=== PATIENT | female | born 1960 | race Caucasian/White ===

== ENCOUNTER 2017-09-26 10:03 | Observation (INO) | payer OTHER ==
[~2017-09-26] VITALS: Ht 152.4 cm; Wt 87.5 kg
[~2017-09-26 10:03] MED LIST: CITA20 PO; FISH OIL + D31 EACH PO; HYDACE5 PO; IBUP600 PO; LEVFLO500 PO; LEVSOD100 PO; PROM25 PO
[2017-09-26] MEDS ORDERED: LISI5 PO (10:32)
[2017-09-26 10:56] LABS: BASOPHILS ABSOLUTE AUTO 0.02 K/mm3 (0.00-0.23); BASOPHILS PERCENT AUTO 0 % (0-2); EOSINOPHILS ABSOLUTE AUTO 0.07 K/mm3 (0.00-0.68); EOSINOPHILS PERCENT AUTO 1 % (0-6); Hematocrit 40.5 % (33.0-51.0); Hemoglobin 13.2 g/dL (11.5-16.0); IMMATURE GRAN ABSOLUTE AUTO 0.02 K/mm3 (0.00-0.10); IMMATURE GRAN PERCENT AUTO 0 % (0-1); LYMPHOCYTES ABSOLUTE AUTO 0.97 K/mm3 (0.84-5.20); LYMPHOCYTES PERCENT AUTO 16 % (21-46); MONOCYTES ABSOLUTE AUTO 0.63 K/mm3 (0.16-1.47); MONOCYTES PERCENT AUTO 11 % (4-13); Mean Corpuscular HGB 30.4 pg (26.0-34.0); Mean Corpuscular HGB Conc 32.6 g/dL (31.5-36.5); Mean Corpuscular Volume 93 fL (80-100); Mean Platelet Volume 9.8 fL (9.1-12.4); NEUTROPHILS ABSOLUTE AUTO 4.28 K/mm3 (1.96-9.15); NEUTROPHILS PERCENT AUTO 72 % (41-73); Platelet Count 238 K/mm3 (150-400); RDW Standard Deviation 44.8 fL (35.1-46.3); Red Blood Cell Count 4.34 M/mm3 (3.80-5.20); White Blood Cell Count 5.99 K/mm3 (4.00-11.30)
[2017-09-26 11:16] LABS: Alanine Aminotransfer (ALT/SGP 20 U/L (12-78); Albumin, Blood 3.6 g/dL (3.4-5.0); Albumin/Globulin Ratio 0.9 (0.8-1.8); Alk Phos 71 U/L (50-136); Anion Gap 10 mmol/L (6-16); Aspartate Aminotrans (AST/SGOT 17 U/L (12-37); Bilirubin, Total 0.8 mg/dL (0.1-1.0); Blood Urea Nitrogen 11 mg/dL (8-24); Bun/Creatinine Ratio 13.9 (12.0-20.0); CO2, Blood 25 mmol/L (21-32); Calcium, Blood 8.6 mg/dL (8.5-10.1); Chloride, Blood 105 mmol/L (98-108); Creatinine, Blood 0.79 mg/dL (0.40-1.00); Globulin, Blood 3.8 g/dL (2.2-4.0); Glomerular Filtration Rate >60 (60-); Glucose, Blood 89 mg/dL (70-99); Potassium, Blood 3.6 mmol/L (3.5-5.5); Sodium, Blood 140 mmol/L (136-145); Total Protein, Blood 7.4 g/dL (6.4-8.2); Troponin I <0.015 ng/mL (0.000-0.040)
[2017-09-26 14:21] LABS: CPK Creatine Kinase 78 U/L (26-193); Creatine Kinase MB 0.9 ng/mL (0.0-3.6); Creatine Kinase MB Index 1.2 (0.0-4.0); Troponin I <0.015 ng/mL (0.000-0.040)
[2017-09-26 14:23] LABS: Thyroid Stimulating Hormone 0.058 uIU/mL (0.360-4.800)
[2017-09-26 20:08] LABS: CPK Creatine Kinase 74 U/L (26-193); Creatine Kinase MB 0.9 ng/mL (0.0-3.6); Creatine Kinase MB Index 1.2 (0.0-4.0); Troponin I <0.015 ng/mL (0.000-0.040)
[2017-09-26 21:25] LABS: U Amphetamine Screen Not Detected; U Barbituate Screen Not Detected; U Benzodiazapine Screen Not Detected; U Buprenorphine Screen Not Detected; U Cannabinoids Screen Not Detected; U Cocaine Screen Not Detected; U Methadone Screen Not Detected; U Methamphetamine Screen Not Detected; U Opiates Screen Not Detected; U Oxycodone Screen Not Detected; U Phencyclidine Screen Not Detected; U Propoxyphene Screen Not Detected
[2017-09-27 05:12] LABS: BASOPHILS ABSOLUTE AUTO 0.02 K/mm3 (0.00-0.23); BASOPHILS PERCENT AUTO 0 % (0-2); EOSINOPHILS ABSOLUTE AUTO 0.14 K/mm3 (0.00-0.68); EOSINOPHILS PERCENT AUTO 2 % (0-6); Hematocrit 37.7 % (33.0-51.0); Hemoglobin 12.3 g/dL (11.5-16.0); IMMATURE GRAN ABSOLUTE AUTO 0.02 K/mm3 (0.00-0.10); IMMATURE GRAN PERCENT AUTO 0 % (0-1); LYMPHOCYTES ABSOLUTE AUTO 0.95 K/mm3 (0.84-5.20); LYMPHOCYTES PERCENT AUTO 15 % (21-46); MONOCYTES ABSOLUTE AUTO 0.61 K/mm3 (0.16-1.47); MONOCYTES PERCENT AUTO 10 % (4-13); Mean Corpuscular HGB 30.4 pg (26.0-34.0); Mean Corpuscular HGB Conc 32.6 g/dL (31.5-36.5); Mean Corpuscular Volume 93 fL (80-100); Mean Platelet Volume 9.8 fL (9.1-12.4); NEUTROPHILS ABSOLUTE AUTO 4.55 K/mm3 (1.96-9.15); NEUTROPHILS PERCENT AUTO 72 % (41-73); Platelet Count 217 K/mm3 (150-400); RDW Coefficient Variation 13.2 % (11.7-14.2); RDW Standard Deviation 45.4 fL (35.1-46.3); Red Blood Cell Count 4.04 M/mm3 (3.80-5.20); White Blood Cell Count 6.29 K/mm3 (4.00-11.30)
[2017-09-27 05:42] LABS: Alanine Aminotransfer (ALT/SGP 17 U/L (12-78); Albumin/Globulin Ratio 0.9 (0.8-1.8); Alk Phos 62 U/L (50-136); Anion Gap 6 mmol/L (6-16); Aspartate Aminotrans (AST/SGOT 13 U/L (12-37); Bilirubin, Total 0.4 mg/dL (0.1-1.0); Blood Urea Nitrogen 14 mg/dL (8-24); Bun/Creatinine Ratio 16.8 (12.0-20.0); CO2, Blood 25 mmol/L (21-32); Calcium, Blood 7.8 mg/dL (8.5-10.1); Chloride, Blood 111 mmol/L (98-108); Cholesterol 131 mg/dL (50-200); Creatinine, Blood 0.84 mg/dL (0.40-1.00); Globulin, Blood 3.4 g/dL (2.2-4.0); Glomerular Filtration Rate >60 (60-); Glucose, Blood 89 mg/dL (70-99); Sodium, Blood 142 mmol/L (136-145); Total Protein, Blood 6.4 g/dL (6.4-8.2); Triglycerides 79 mg/dL (30-160)
[2017-09-27] MEDS ORDERED: ACET325 PO (12:58)
[2017-09-27] MEDS ORDERED: IBUP800 PO (12:58)
[2017-09-27] MEDS ORDERED: PANT40 PO (12:59)
[2017-09-27] MEDS ORDERED: Mucinex1200 MG PO (13:00)
== END 2017-09-27 14:13 | disposition home or self-care (01) ==
LOC: ER 10:03 → MEDS 10:04 → ENPENDDIS 09-27 12:21 → MEDS 09-27 14:13
PROVIDERS: Emergency Medicine; Family Medicine
DX: R07.81 Pleurodynia (principal); R94.31 Abnormal electrocardiogram [ECG] [EKG]; R06.02 Shortness of breath; F41.9 Anxiety disorder, unspecified; F32.9 Major depressive disorder, single episode, unspecified; I10 Essential (primary) hypertension; E03.9 Hypothyroidism, unspecified; Z98.890 Other specified postprocedural states; Z79.899 Other long term (current) drug therapy; Z79.01 Long term (current) use of anticoagulants
CPT/HCPCS: 36415; 80053; 82465; 82550; 82553; 83690; 84443; 84478; 84484; 85025; 85379; 93005; 93010; 94762; 96361; 96372; 96374; 99285; G0378; J1650; J1885; J7030

== ENCOUNTER 2019-03-23 07:44 | Day surgery (SDC) | payer OTHER ==
[~2019-03-23] VITALS: Ht 152.4 cm; Wt 90.1 kg
[~2019-03-23 07:44] MED LIST changes: +ACET325 PO; +IBUP800 PO; +LISI5 PO; +Mucinex1200 MG PO; +PANT40 PO
--- NOTE | 2019-03-23 08:15 | NUR ---
History, Chart, Medications and Allergies reviewed before start of procedure. Patient confirms NPO status and agrees with scheduled surgery.
--- NOTE | 2019-03-23 08:34 | NUR ---
Lungs clear T/O to Auscultation.
--- NOTE | 2019-03-23 08:50 | NUR ---
NO HCG INDICATED. PATIENT HAS GONE THROUGH MENOPAUSE.
--- NOTE | 2019-03-23 11:24 | NUR ---
INTO STEP VIA LB. PT A&OX3-REPORTS NAUSEA-PT GAGGING, BUT NO EMESIS. MED WITH REGLAN 10 MG IVP X1 FOR NAUSEA. PT REPORTS 8/10 LEFT KNEE PAIN DESPITE BEING MEDICATED WITH A TOTAL OF 150 MCG FENTANYL IV IN PACU.LEFT KNEE WITH GARRY WRAP IN PLACE-ICE PACK PLACED TO LEFT KNEE. BP 176/83. O2 AT 2 LITERS N/C TO KEEP SATS>90%.
--- NOTE | 2019-03-23 11:41 | NUR ---
PT TOLERATED A FEW ICE CHIPS WITHOUT ANY NAUSEA. APPEARS TO BE DOSING WHEN NOT DISTURBED.
--- NOTE | 2019-03-23 13:05 | NUR ---
LEFT KNEE GARRY WRAP C/D/I. ASSISTED PT WITH DRESSING AND TRANSFERED TO AND BRP-NON WEIGHT BEARING TO LEFT LEG. PT TOLERATED WELL. PT ABLE TO VOID X 1 WITHOUT DIFFICUTLY. DISCHARGE INSTRUCTIONS REVIEWED WITH PT AND SPOUSE. BOTH PT AND SPOUSE VERBALIZE UNDERSTANDING. PT DISCHARGED TO HOME, OUT VIA WHEELCHAIR WITH RX, DISCHARGE INSTRUCTIONS, AND BELONGINGS ON HAND. PT DIS HAVE 200 CC EMESIS JUST PRIOR TO GETTING INTO PERSONAL VEHICLE-PT DENIES NAUSEA AFTER THE EMESIS AND WISHES TO PROCEED WITH DISCHARGE.
== END 2019-03-23 13:05 | disposition home or self-care (01) ==
LOC: ORSCMMR 07:44 → ORD 09:00 → ORSCMMR 13:05
PROVIDERS: Orthopaedic Surgery
PROC: 0SBD4ZZ Excision of Left Knee Joint, Percutaneous Endoscopic Approach (ICD-10-PCS; principal; 2019-03-23 09:00)
PROC: 0SQD4ZZ Repair Left Knee Joint, Percutaneous Endoscopic Approach (ICD-10-PCS; principal; 2019-03-23 09:00)
DX: S83.272A Complex tear of lateral meniscus, current injury, left knee, initial encounter (principal); S83.232A Complex tear of medial meniscus, current injury, left knee, initial encounter; I10 Essential (primary) hypertension; Z79.899 Other long term (current) drug therapy
CPT/HCPCS: C1713; J0171; J0690; J1100; J1885; J2250; J2405; J2704; J2765; J3010; J7120

== ENCOUNTER → 2019-06-20 | Outpatient (CLI) | payer OTHER | END | disposition home or self-care (01) | LOC: LAB SHORT 14:50 → LAB 14:50 | DX: N39.0 Urinary tract infection, site not specified (principal) | CPT/HCPCS: 87086 ==

== ENCOUNTER 2021-07-03 08:10 | Day surgery (SDC) | payer OTHER ==
[~2021-07-03] VITALS: Ht 152.4 cm; Wt 86.6 kg
--- NOTE | 2021-07-03 10:05 | NUR ---
07/03/21 1005 [place] RASH 2X4 INCH NOTED ON RIGHT LOWER CHEST PRE OPERATIVELY. MD AWARE NO NEW ORDERS
--- NOTE | 2021-07-03 12:17 | NUR ---
ASSUME CARE. RX GIVEN TO TO TO BE FILLED. RESTING COMFORTABLE. PAIN MED WORKING; PAIN LEVEL 3/10.
--- NOTE | 2021-07-03 13:10 | NUR ---
RETURNED FROM PHARMACY. Discharge instructions reviewed with patient. Patient verbalizes understanding. Copy given to patient to take home. Dressing to procedure site clean, dry, intact with no visible drainage, swelling, erythema or bruising noted. Abdominal binder in place. Patient States Post-Procedure ride home has been arranged. Discharged via wheelchair to private car for ride home.
== END 2021-07-03 13:09 | disposition home or self-care (01) ==
LOC: ORSCMMR 08:10 → ORD 09:30 → ORSCMMR 09:30
PROVIDERS: Surgery
PROC: 0WUF0JZ Supplement Abdominal Wall with Synthetic Substitute, Open Approach (ICD-10-PCS; principal; 2021-07-03 09:30)
DX: K43.6 Other and unspecified ventral hernia with obstruction, without gangrene (principal); E03.9 Hypothyroidism, unspecified; E66.01 Morbid (severe) obesity due to excess calories; Z68.37 Body mass index [BMI] 37.0-37.9, adult; Z79.899 Other long term (current) drug therapy
CPT/HCPCS: 93005; 93010; A9270; C1781; J0690; J2250; J7120

== ENCOUNTER 2023-03-21 10:46 | Day surgery (SDC) | payer OTHER ==
[~2023-03-21] VITALS: Ht 152.4 cm; Wt 79.9 kg
[~2023-03-21 10:46] MED LIST changes: +LOSA50 PO
[2023-03-21 11:48] VITALS: BP 138/82
--- NOTE | 2023-03-21 12:09 | NUR ---
PRE-PROCEDURE NOTE PT A&OX4, BREATHING RA, NO ACUTE CONCERNS. Ambulatory in Day Surgery Patient confirms NPO status and agrees with scheduled surgery. Patient States Post-Procedure ride home has been arranged. Patient confirms NPO status and agrees with scheduled surgery.
--- NOTE | 2023-03-21 12:54 | NUR ---
03/21/23 1254 Sander Balderrama HISTORY, CHART, MEDICATIONS AND ALLERGIES REVIEWED BEFORE START OF PROCEDURE. PATIENT CONFIRMS NPO STATUS AND AGREES WITH SCHEDULED PROCEDURE. 3-LEAD EKG REVIEWED WITH PHYSICIAN PRIOR TO START OF PROCEDURE. MONITOR INTACT WITH CONTINUOUS PULSE OXIMETRY,CAPNOGRAPHY, 3-LEAD EKG, INTERMITTENT BP. SUPPLEMENTAL O2 TO BE TITRATED THROUGHOUT PROCEDURE TO MAINTAIN O2 SATURATION ABOVE 90%. PATIENT DETERMINED TO BE ASA APPROPRIATE FOR PROPOFOL SEDATION PRIOR TO START OF PROCEDURE BY
[2023-03-21 13:20] VITALS: BP 122/85
[2023-03-21 13:30] VITALS: BP 143/69
[2023-03-21 13:40] VITALS: BP 145/82
--- NOTE | 2023-03-21 13:41 | NUR ---
Patient up to Ambulate independently. Gait steady. Discharge instructions reviewed with patient. Patient verbalizes understanding. Copy given to patient to take home. Patient States Post-Procedure ride home has been arranged. Discharged via wheelchair to private car for ride home. ALL BELONINGS RETURNED TO PATIENT.
== END 2023-03-21 13:47 | disposition home or self-care (01) ==
LOC: ORSCMMR 10:46 → ORD 12:15 → ORSCMMR 12:15 → ORSCSDS 04-09 09:45
PROVIDERS: Internal Medicine Gastroenterology
PROC: 0DBK8ZX Excision of Ascending Colon, Via Natural or Artificial Opening Endoscopic, Diagnostic (ICD-10-PCS; principal; 2023-03-21 12:15)
DX: Z12.11 Encounter for screening for malignant neoplasm of colon (principal); D12.2 Benign neoplasm of ascending colon; K57.30 Diverticulosis of large intestine without perforation or abscess without bleeding; E03.9 Hypothyroidism, unspecified; F32.A Depression, unspecified; Z68.35 Body mass index [BMI] 35.0-35.9, adult; E66.9 Obesity, unspecified; Z79.899 Other long term (current) drug therapy
CPT/HCPCS: 88305; J2704; J7120

== ENCOUNTER 2023-05-29 12:51 | Day surgery (SDC) | payer OTHER ==
[~2023-05-29] VITALS: Ht 152.4 cm; Wt 79.0 kg
--- NOTE | 2023-05-29 14:56 | NUR ---
05/29/23 1456 [facility] [place] 1445: BLOCK COMPLETED BY DR CHOW. TIMEOUT COMPLETED PRIOR TO BLOCK.
--- NOTE | 2023-05-29 17:37 | NUR ---
05/29/23 1737 Bettina Gaspar O2 AT 6 L SUPPLEMENTAL. TITRATED PT DOWN TO 3L AND PT MAINTAINED ACCEPTABLE O2. TITRATED PT OFF OF SUPPLEMENTAL AND O2 SATS WENT INTO HIGH 80S. PT IS NOW BACK ON 4 L OF 02.
[2023-05-29 17:48] VITALS: BP 145/86
--- NOTE | 2023-05-29 18:34 | NUR ---
05/29/23 183 Bettina Gaspar PT DENIED NAUSEA AND PAIN PRIOR TO DISCHARGE. WHEN REMOVING THE IV, PT FELT NAUSEATED BUT REFUSED NAUSEA MEDICATIONS WHEN THEY WERE OFFERED. PT STATED SHE WAS READY TO GO HOME AND WOULD "BE FINE".
== END 2023-05-29 18:21 | disposition home or self-care (01) ==
LOC: ORSCSDS 12:51
PROVIDERS: Podiatrist Foot & Ankle Surgery
PROC: 0LQP0ZZ Repair Left Lower Leg Tendon, Open Approach (ICD-10-PCS; principal; 2023-05-29 14:20)
DX: S86.012A Strain of left Achilles tendon, initial encounter (principal); I10 Essential (primary) hypertension; E03.9 Hypothyroidism, unspecified; I12.9 Hypertensive chronic kidney disease with stage 1 through stage 4 chronic kidney disease, or unspecified chronic kidney disease; N18.9 Chronic kidney disease, unspecified; Z79.899 Other long term (current) drug therapy; Z68.34 Body mass index [BMI] 34.0-34.9, adult
CPT/HCPCS: A9270; C1713; J0171; J0690; J1100; J1885; J2250; J2405; J2704; J2795; J3010; J7120

== ENCOUNTER 2024-04-13 09:13 | Emergency (ER) | payer OTHER ==
[~2024-04-13] VITALS: Ht 152.4 cm; Wt 75.3 kg
[2024-04-13 10:14] LABS: BASOPHILS ABSOLUTE AUTO 0.04 K/mm3 (0.00-0.23); BASOPHILS PERCENT AUTO 1 % (0-2); EOSINOPHILS ABSOLUTE AUTO 0.11 K/mm3 (0.00-0.68); EOSINOPHILS PERCENT AUTO 2 % (0-6); Hematocrit 44.6 % (33.0-51.0); Hemoglobin 14.7 g/dL (11.5-16.0); IMMATURE GRAN ABSOLUTE AUTO 0.01 K/mm3 (0.00-0.10); IMMATURE GRAN PERCENT AUTO 0 % (0-1); LYMPHOCYTES ABSOLUTE AUTO 1.08 K/mm3 (0.84-5.20); LYMPHOCYTES PERCENT AUTO 15 % (21-46); MONOCYTES PERCENT AUTO 7 % (4-13); Mean Corpuscular HGB 30.5 pg (26.0-34.0); Mean Corpuscular Volume 93 fL (80-100); Mean Platelet Volume 9.3 fL (9.1-12.4); NEUTROPHILS PERCENT AUTO 76 % (41-73); Platelet Count 258 K/mm3 (150-400); RDW Coefficient Variation 13.1 % (11.7-14.2); RDW Standard Deviation 44.9 fL (35.1-46.3); Red Blood Cell Count 4.82 M/mm3 (3.80-5.20); White Blood Cell Count 7.14 K/mm3 (4.00-11.30)
[2024-04-13 10:41] LABS: Albumin, Blood 3.8 g/dL (3.4-5.0); Albumin/Globulin Ratio 1.2 (0.8-1.8); Bun/Creatinine Ratio 21.7 (12.0-20.0); Creatinine, Blood 0.88 mg/dL (0.40-1.00); Globulin, Blood 3.3 g/dL (2.2-4.0); Potassium, Blood 3.9 mmol/L (3.5-5.5); Total Protein, Blood 7.1 g/dL (6.4-8.2)
[2024-04-13] MEDS ORDERED: NS 1,000 ML IV SCH (11:05)
[2024-04-13 11:18] LABS: Influenza A, PCR NEGATIVE (NEGATIVE); Influenza B, PCR NEGATIVE (NEGATIVE); Resp Syncytial Virus, PCR NEGATIVE (NEGATIVE); SARS-Cov-2 (COVID-19) PCR, MMC NEGATIVE (NEGATIVE)
[2024-04-13 11:21] LABS: Free Thyroxine 1.99 ng/dL (0.70-1.60); Thyroid Stimulating Hormone 0.405 uIU/mL (0.360-4.800)
[2024-04-13 13:14] VITALS: BP 148/70
== END 2024-04-13 13:30 | disposition home or self-care (01) ==
LOC: ER 09:13
PROVIDERS: Physician Assistant; Student in an Organized Health Care Education/Training Program
DX: B34.9 Viral infection, unspecified (principal); R07.9 Chest pain, unspecified; I10 Essential (primary) hypertension; E03.9 Hypothyroidism, unspecified; Z79.899 Other long term (current) drug therapy; Z91.030 Bee allergy status; Z88.8 Allergy status to other drugs, medicaments and biological substances
CPT/HCPCS: 0241U; 71046; 80053; 83690; 83880; 84439; 84443; 84484; 85025; 85379; 93005; 93010; 96360; 96361; 99285-25; J7030

== ENCOUNTER 2024-07-15 09:20 | Day surgery (SDC) | payer OTHER ==
[~2024-07-15] VITALS: Ht 154.9 cm; Wt 81.1 kg
[~2024-07-15 09:20] MED LIST changes: +Aspir 8181 MG PO; +Crestor40 MG PO
[2024-07-15 09:46] VITALS: BP 162/105
[2024-07-15] MEDS ORDERED: Verapamil HCL 2.5 MG/ML 2ML Injection ONE (10:33)
[2024-07-15] MEDS ORDERED: Heparin Sodium 1000 Units/ML 10ML MDV ONE ×2 (10:33→10:36)
[2024-07-15] MEDS ORDERED: NS 1,000 ML IV ONE ×2 (10:33→10:36)
[2024-07-15] MEDS ORDERED: NS 250 ML IV ONE (10:33)
[2024-07-15] MEDS ORDERED: Nitroglycerin 2 MG/20 ML BTL ONE (10:33)
[2024-07-15] MEDS ORDERED: FentaNYL Citrate 50 MCG/ML 2 ML Injection ONE (10:40)
[2024-07-15] MEDS ORDERED: Midazolam HCl 1MG / ML 2ML Vial ONE (10:40)
--- NOTE | 2024-07-15 11:30 | NUR ---
PT BACK TO RECOVERY ROOM. PT ALERT AND ORIENTED. SITTING UP IN RECLINER. PT GIVEN COFFEE AND BREAKFAST SANDWICH. 12 CC IN TR BAND TO R WRIST
[2024-07-15 11:35] VITALS: BP 142/76
[2024-07-15 11:45] VITALS: BP 141/90
--- NOTE | 2024-07-15 11:54 | NUR ---
PT BACK TO RECOVERY ROOM.
--- NOTE | 2024-07-15 11:56 | NUR ---
PT SPOUSE IN TO VISIT. PT DENIES NEEDS.
[2024-07-15 12:00] VITALS: BP 125/61
[2024-07-15 12:36] VITALS: BP 128/93
[2024-07-15 13:02] VITALS: BP 125/71
--- NOTE | 2024-07-15 13:32 | NUR ---
10CC AIR REMOVED FROM R WRIST TR BAND. NEG BLEEDING OR SWELLING.
--- NOTE | 2024-07-15 13:40 | NUR ---
PT AND VERBALIZED UNDERSTANDING OF WRITTEN AND VERBAL D/C INST. IV REMOVED. R WRIST TR BAND REMOVED AND CLOTH DOT DRSG PLACED OVER PUNCTURE AREA. R WRIST SPLIT REAPPLIED.
== END 2024-07-15 14:34 | disposition home or self-care (01) ==
LOC: MHTC 09:20
DX: I25.118 Atherosclerotic heart disease of native coronary artery with other forms of angina pectoris (principal); E78.00 Pure hypercholesterolemia, unspecified; I10 Essential (primary) hypertension; F32.9 Major depressive disorder, single episode, unspecified; E03.9 Hypothyroidism, unspecified; Z79.82 Long term (current) use of aspirin; Z79.899 Other long term (current) drug therapy; Z88.8 Allergy status to other drugs, medicaments and biological substances
CPT/HCPCS: 76937; 93454; 99152; C1769; C1887; C1894; J1644; J2250; J3010; J7030; J7050; Q9967